=== PATIENT | male | born 1965 | race African-American/Black ===

== ENCOUNTER 2019-03-11 06:00 | Emergency (ER) | payer MEDICAID, MEDICARE ==
[~2019-03-11] VITALS: Ht 175.3 cm; Wt 102.0 kg
[2019-03-11 07:03] VITALS: BP 134/78
== END 2019-03-11 07:04 | disposition home or self-care (01) ==
LOC: ER 06:00
DX: N40.1 Benign prostatic hyperplasia with lower urinary tract symptoms (principal); R33.8 Other retention of urine
CPT/HCPCS: 99281

== ENCOUNTER 2019-05-02 09:20 | Emergency (ER) | payer MEDICARE ==
[~2019-05-02] VITALS: Ht 175.3 cm; Wt 97.6 kg
[2019-05-02] MEDS ORDERED: HAL5 GT (09:58)
[2019-05-02] MEDS ORDERED: IBUP-2030 PO (09:58)
[2019-05-02] MEDS ORDERED: TAMS-11 PO (09:58)
[2019-05-02] MEDS ORDERED: LORAZEPAM 2MG/ML CPJ IV ONE (10:30)
[2019-05-02 11:06] LABS: BASOPHILS % 0.5 % (0.0-2.0); EOSINOPHILS % 0.7 % (0.0-5.0); HEMATOCRIT. 45.1 % (42.0-52.0); HEMOGLOBIN. 15.2 g/dL (14.0-18.0); LYMPHOCYTES % 15.8 % (20.0-50.0); MEAN CORPUSCULAR HEMOGLOBIN 28.7 pg (28.0-32.0); MEAN CORPUSCULAR VOLUME 84.9 fL (80.0-94.0); MEAN PLATELET VOLUME 8.5 fl (7.4-10.4); MONOCYTES % 10.1 % (2.0-8.0); NEUTROPHILS % 72.9 % (40.0-76.0); PLATELET 327 x1000/uL (130-400); RED BLOOD CELL COUNT 5.32 mill/uL (4.7-6.1); RED CELL DISTRIBUTION WIDTH 14.9 % (11.6-14.6)
[2019-05-02 11:15] LABS: CHLORIDE 100 mEq/L (98-107)
[2019-05-02 11:20] LABS: ETHANOL BLOOD < 10 mg/dL
[2019-05-02 11:23] LABS: PHOSPHORUS 2.8 mg/dL (2.5-4.9)
[2019-05-02 12:08] LABS: *AMPHETAMINES SCREEN URINE NEGATIVE (NEGATIVE); *BARBITURATES SCREEN URINE NEGATIVE (NEGATIVE)
[2019-05-02 12:09] LABS: *BENZODIAZEPINES SCREEN URINE NEGATIVE (NEGATIVE); *COCAINE SCREEN URINE NEGATIVE (NEGATIVE); METHADONE URINE SCREEN NEGATIVE (NEGATIVE); PHENCYCLIDINE URINE SCREEN NEGATIVE (NEGATIVE)
[2019-05-02 12:10] LABS: CANNABINOID URINE SCREEN NEGATIVE (NEGATIVE)
[2019-05-02 12:15] LABS: OPIATES URINE SCREEN NEGATIVE (NEGATIVE)
[2019-05-02 13:16] VITALS: BP 137/95
== END 2019-05-02 13:16 | disposition home or self-care (01) ==
LOC: ER 09:20
DX: F15.129 Other stimulant abuse with intoxication, unspecified (principal); R20.2 Paresthesia of skin; F43.10 Post-traumatic stress disorder, unspecified; Z98.890 Other specified postprocedural states; R00.0 Tachycardia, unspecified
CPT/HCPCS: 36415; 80048; 80305; 80320; 82962; 83735; 84100; 85025; 93005; 96374; 99284; J2060; G0480

== ENCOUNTER 2021-11-30 03:35 | Emergency (ER) | payer MEDICARE, OTHER ==
[~2021-11-30] VITALS: Ht 175.3 cm; Wt 104.0 kg
[~2021-11-30 03:35] MED LIST: HALO5TAB2 GT; IBUP-2030 PO; TAMS-11 PO
[2021-11-30 03:58] VITALS: BP 124/82
== END 2021-11-30 05:50 | disposition left against medical advice (07) ==
LOC: ER 03:35
DX: Z53.21 Procedure and treatment not carried out due to patient leaving prior to being seen by health care provider (principal)